=== PATIENT | male | born 1980 | race Caucasian/White ===

== ENCOUNTER 2017-04-18 15:50 | Emergency (ER) | payer OTHER ==
[2017-04-18] MEDS ORDERED: LIDOCAINE 1% INJ-PF (10 MG/ML) 30 ML SDV INJ ONE (16:02)
[2017-04-18] MEDS ORDERED: CEPHALEXIN 500 MG CAPSULE PO ONE (16:02)
[2017-04-18] MEDS ORDERED: ACETAMINOPHEN 325 MG TABLET PO ONE (16:02)
--- NOTE | 2017-04-18 16:12 | ER Document Report ---
ED Wound - General Chief Complaint: Laceration Stated Complaint: LACERATION TO RIGHT LEG Time Seen by Provider: 04/18/17 16:02 TRAVEL OUTSIDE OF THE [place] 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 Severity: Mild Context: Injury Skin Temperature: Warm Skin Color: Normal Capillary refill: < 3 seconds Sensations intact: Yes Distal pulses present: Yes - Related Data Allergies/Adverse Reactions: No Known Allergies Allergy (Verified 04/18/17 16:00) Home Medications: Current Home Medications Methadone HCl [Methadose] 40 mg PO DAILY 04/18/17 [History] Past Medical History - Social History Smoking Status: Current Every Day Smoker Family History: None Renal/ Medical History: Denies: Hx Peritoneal Dialysis Skin Medical History: Reports Hx MRSA - Immunizations Hx Diphtheria, Pertussis, Tetanus Vaccination: Yes - 2013 Review of Systems - Review of Systems Constitutional: No symptoms reported Musculoskeletal: No symptoms reported Skin: See HPI -: Yes All other systems reviewed and negative Physical Exam - Vital signs Vitals: Temp Pulse Resp BP Pulse Ox 98.0 F 70 16 138/78 H 98 04/18/17 15:54 04/18/17 15:54 04/18/17 15:54 04/18/17 15:54 04/18/17 15:54 - General General appearance: Appears well, Alert In distress: None - Cardiovascular Pulses: Normal: Posterior tibial, Dorsalis pedis Normal capillary refill: Yes - Extremities General upper extremity: Other General lower extremity: Nontender, Normal ROM, Normal strength, Normal temperature, Normal weight bearing - Neurological Neuro grossly intact: Yes Cognition: Normal Orientation: AAOx4 Laura Coma Scale Eye Opening: Spontaneous Laura Coma Scale Verbal: Oriented Laura Coma Scale Motor: Obeys Commands Laura Coma Scale Total: 15 Speech: Normal Motor strength normal: LLE, RLE Additional motor exam normals: Equal digital strategist senior manager. No: Weakness Sensory: Normal - Skin Skin irregularity: Laceration - lateral calf into subq fat without muscle involvement, minimal bleeding measuring 5cm long Course - Re-evaluation Re-evalutation: 04/18/17 19:59 Patient is a 36-year-old male who cut his leg at work. Laceration is with minimal bleeding but stopped with lidocaine with epi and pressure. Wound is irrigated with Betadine and saline. Closed with 7 vertical mattress 4-0 nylon sutures. Dry sterile dressing applied. Patient discharged home on p.o. Keflex. Patient to follow-up in 8-10 days for suture removal. - Vital Signs Vital signs: Temp Pulse Resp BP Pulse Ox 98.2 F 60 18 131/78 H 97 04/18/17 17:47 04/18/17 17:47 04/18/17 17:47 04/18/17 17:47 04/18/17 17:47 Procedures - Laceration/Wound Repair Right Leg Wound length (cm): 5 Wound's Depth, Shape: Linear Laceration pre-procedure: Sterile PPE donned, Betadine prep applied, Sterile drapes applied Anesthetic type: 1% Lidocaine w/epi Volume Anesthetic (mLs): 5 Wound explored: Clean, No foreign body removed Irrigated w/ Saline (mLs): 1,000 Wound Repaired With: Sutures Suture Size/Type: 4:0, Nylon Number of Sutures: 7 Post-procedure wound care: Sterile dressing applied Post-procedure NV exam normal: Yes Complications: No Discharge - Discharge Clinical Impression: Laceration Condition: Good Disposition: HOME, SELF-CARE Instructions: Antibiotic Ointment Protection ([facility]), Laceration Care ([facility]), Prophylactic Antibiotic ([facility]), Soap Cleansing ([facility]) Additional Instructions: Please see a health wound care specialist in 8-10 days to have your stitches removed Prescriptions: Cephalexin Monohydrate [Keflex 500 mg Capsule] 500 mg PO QID #20 capsule
[2017-04-18] MEDS ORDERED: LIDOCAINE 2%/EPINEPHRINE INJ 20 ML VIAL INJ ONE (16:46)
[2017-04-18] MEDS ORDERED: LIDOCAINE 1%/EPINEPHRINE INJ 20 ML VIAL INJ ONE (16:49)
[2017-04-18 17:50] VITALS: BP 131/78
== END 2017-04-18 17:50 | disposition home or self-care (01) ==
LOC: ER 15:50
PROC: 0HQKXZZ Repair Right Lower Leg Skin, External Approach (ICD-10-PCS; principal; 2017-04-18)
DX: S81.811A Laceration without foreign body, right lower leg, initial encounter (principal); W45.8XXA Other foreign body or object entering through skin, initial encounter; Z79.899 Other long term (current) drug therapy
CPT/HCPCS: 99282; 12002; J3490 ×2

== ENCOUNTER 2019-03-18 09:39 | Emergency (ER) | payer OTHER ==
[2019-03-18 09:45] VITALS: BP 153/77
[2019-03-18] MEDS ORDERED: TETRACAINE HCL 0.5% OPH SOLN 4 ML OS ONE (09:45)
--- NOTE | 2019-03-18 09:47 | ER Document Report ---
ED Medical Screen (RME) - General Chief Complaint: Eye Injury Stated Complaint: EYE INJURY Time Seen by Provider: 03/18/19 09:44 Mode of Arrival: Ambulatory Information source: Patient Notes: 38-year-old male presented to ED for foreign body and left eye. 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 There does appear to be a piece of metal about 10 11:00 on the left eye. He states any time he sets his eyes he can feel it rubbing against his eyelid. He is alert oriented respirations regular and unlabored speaking in full sentences walks with a even steady gait. He states he smokes a pack a day does not drink alcohol but he is on methadone. I have greeted and performed a rapid initial assessment of this patient. A comprehensive ED assessment and evaluation of the patient, analysis of test results and completion of medical decision making process will be conducted by an additional ED provider Dictation of this chart was performed using voice recognition software; therefore, there may be some unintended grammatical errors. TRAVEL OUTSIDE OF THE [place] IN LAST 30 DAYS: No - Related Data Allergies/Adverse Reactions: No Known Allergies Allergy (Verified 03/18/19 09:41) Past Medical History Renal/ Medical History: Denies: Hx Peritoneal Dialysis Skin Medical History: Reports Hx MRSA - Immunizations Hx Diphtheria, Pertussis, Tetanus Vaccination: Yes - 2013 Physical Exam - Vital signs Vitals: Temp Pulse Resp BP Pulse Ox 97.7 F 66 18 153/77 H 97 03/18/19 09:44 03/18/19 09:44 03/18/19 09:44 03/18/19 09:44 03/18/19 09:44 Course - Vital Signs Vital signs: Temp Pulse Resp BP Pulse Ox 97.7 F 66 18 153/77 H 97 03/18/19 09:44 03/18/19 09:44 03/18/19 09:44 03/18/19 09:44 03/18/19 09:44
[2019-03-18] MEDS ORDERED: KETOROLAC TROMETHAMINE 0.45% 4 DROP/0.4 ML DROPERETTE OS ONE (10:16)
[2019-03-18] MEDS ORDERED: ERYTHROMYCIN 0.5% OPH OINTMENT 3.5 GM (ER DISP) OS SCH (10:30)
--- NOTE | 2019-03-18 15:33 | ER Document Report ---
Entered by SEDRICK JORGE SCRIBE 03/18/19 1021 Acting as scribe for:AARON SENIOR DO ED Eye Complaint - General Chief Complaint: Eye Injury Stated Complaint: EYE INJURY Time Seen by Provider: 03/18/19 09:44 Primary Care Provider: PAOLO PADRON MD [ACTIVE STAFF] - Follow up in 3-5 days Mode of Arrival: Ambulatory Information source: Patient Notes: 38-year-old male who presents to emergency department today with complaints of a work-related injury that occurred just prior to arrival. 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 Patient states he tried washing the eye out with water and also attempted to use a magnet to remove it without success. Patient complains of excessive tearing to the left eye. Patient denies blurry vision or the usage of contact lenses. Last tetanus shot was within the past 10 years. TRAVEL OUTSIDE OF THE [place] IN LAST 30 DAYS: No - Related Data Allergies/Adverse Reactions: No Known Allergies Allergy (Verified 03/18/19 09:41) Past Medical History - General Information source: Patient - Social History Smoking Status: Current Every Day Smoker Cigarette use (# per day): Yes Chew tobacco use (# tins/day): No Frequency of alcohol use: None Drug Abuse: None Lives with: Family Family History: None Patient has suicidal ideation: No Patient has homicidal ideation: No Renal/ Medical History: Denies: Hx Peritoneal Dialysis Skin Medical History: Reports Hx MRSA - Immunizations Hx Diphtheria, Pertussis, Tetanus Vaccination: Yes - 2013 Review of Systems - Review of Systems Constitutional: No symptoms reported EENT: See HPI, Eye pain - left, foreign body Cardiovascular: No symptoms reported Respiratory: No symptoms reported Gastrointestinal: No symptoms reported Genitourinary: No symptoms reported Male Genitourinary: No symptoms reported Musculoskeletal: No symptoms reported Skin: No symptoms reported Hematologic/Lymphatic: No symptoms reported Neurological/Psychological: No symptoms reported -: Yes All other systems reviewed and negative Physical Exam - Vital signs Vitals: Temp Pulse Resp BP Pulse Ox 97.7 F 66 18 153/77 H 97 03/18/19 09:44 03/18/19 09:44 03/18/19 09:44 03/18/19 09:44 03/18/19 09:44 - Notes Notes: PHYSICAL EXAM GENERAL: Alert, interacts well. No acute distress. HEAD: Normocephalic, atraumatic. EYES: Pupils equal, round, and reactive to light. Extraocular movements intact. Injected conjunctiva on the left. Excessive tearing on the left. Foreign body located at the 1000 position over the iris. Corneal abrasion at the 1000 position after metal foreign body removed. Linear fluorescein uptake left to right extending to where the foreign body was removed. ENT: Oral mucosa moist, tongue midline. NECK: Full range of motion. Supple. Trachea midline. LUNGS: No respiratory distress. EXTREMITIES: Moves all 4 extremities spontaneously. NEUROLOGICAL: Alert and oriented x3. Normal speech. PSYCH: Normal affect, normal mood. SKIN: Warm, dry, normal turgor. - HEENT Visual acuity- Right eye: 20/15 Visual acuity- Left eye: 20/100 Visual acuity- Both eyes: 20/20 Corrective lenses worn: No - pt argumentative during visual accuity. provider informed of results Course - Re-evaluation Re-evalutation: 03/18/19 10:18 Eye was anesthetized using tetracaine, using the slit-lamp the foreign body was visualized and removed using the tip of an 18-gauge needle and a Q-tip, patient tolerated procedure well, afterwards slit-lamp exam was performed using fluorescein dye which revealed 2 corneal abrasions. Patient will be treated with erythromycin ointment and ketorolac drops. No rust ring was noted. Patient will be discharged to home. - Vital Signs Vital signs: Temp Pulse Resp BP Pulse Ox 97.7 F 66 18 153/77 H 97 03/18/19 09:44 03/18/19 09:44 03/18/19 09:44 03/18/19 09:44 03/18/19 09:44 Discharge - Discharge Clinical Impression: Foreign body of external eye, left Qualifiers: Encounter type: initial encounter Qualified Code(s): T15.92XA - Foreign body on external eye, part unspecified, left eye, initial encounter Condition: Stable Disposition: HOME, SELF-CARE Additional Instructions: Eye Injury You have been evaluated for an eye injury or problem. At this time no serious, vision-threatening problem could be found. We removed a piece of metal from your eye. There does not appear to be any metal left. We have prescribed erythromycin ointment for your eye. Please apply it 4 times a day for the next 5 days. Please use ibuprofen (Motrin or Advil) 600-800 mg every 8 hours as needed for pain or fever. You may also use acetaminophen (Tylenol) 1000 mg every 4-6 hours as needed for pain or fever. Please be aware that many medications contain acetaminophen, do not exceed a total of 1000 mg of acetaminophen every 6 hours. If you develop fever please return to the emergency department immediately Don't drive or operate machinery until you have the use of both your eyes. Call the doctor or return at once if you develop severe pain, decreasing vision, eye swelling, or pus drainage. Forms: Return to Work Referrals: PAOLO PADRON MD [ACTIVE STAFF] - Follow up in 3-5 days I personally performed the services described in the documentation, reviewed and edited the documentation which was dictated to the scribe in my presence, and it accurately records my words and actions.
== END 2019-03-18 10:45 | disposition home or self-care (01) ==
LOC: ER 09:39
DX: T15.02XA Foreign body in cornea, left eye, initial encounter (principal); X58.XXXA Exposure to other specified factors, initial encounter; Y93.89 Activity, other specified; Y99.0 Civilian activity done for income or pay; F17.210 Nicotine dependence, cigarettes, uncomplicated
CPT/HCPCS: 99283; 65222; J3490

== ENCOUNTER 2019-03-31 17:42 | Emergency (ER) | payer SELFPAY ==
--- NOTE | 2019-04-01 00:02 | EKG REPORT ---
SEVERITY:- BORDERLINE ECG - SINUS RHYTHM BORDERLINE PROLONGED QT INTERVAL : Confirmed by: Rafa Luna 01-Apr-2019 00:01:04
== END 2019-03-31 19:15 | disposition left against medical advice (07) ==
LOC: ER 17:42
DX: Z53.21 Procedure and treatment not carried out due to patient leaving prior to being seen by health care provider (principal)

== ENCOUNTER 2019-04-11 11:45 | Emergency (ER) | payer SELFPAY ==
--- NOTE | 2019-04-11 13:12 | ER Document Report ---
ED Medical Screen (RME) - General Chief Complaint: Chest Pain Stated Complaint: CHEST PAIN Time Seen by Provider: 04/11/19 12:54 Notes: Patient is a 38-year-old male who presents the emergency department with a chief complaint of chest pain. He states that his pain started 2 weeks ago and at that time he was lifting with his arms for his job. He states the pain is in his mid left chest and when he presses on it it hurts. Patient states that he goes to the methadone clinic and does not want any actual pain medicine. He took his methadone today. Patient is a current smoker and smokes a pack a day. He has not had this chest pain before and states that he is worried. Exam: Tenderness upon palpation to left chest. I have greeted and performed a rapid initial assessment of this patient. A comprehensive ED assessment and evaluation of the patient, analysis of test results and completion of medical decision making process will be conducted by an additional ED providers. TRAVEL OUTSIDE OF THE [place] IN LAST 30 DAYS: No - Related Data Allergies/Adverse Reactions: No Known Allergies Allergy (Verified 04/11/19 11:45) Past Medical History - Social History Frequency of alcohol use: None Drug Abuse: None Renal/ Medical History: Denies: Hx Peritoneal Dialysis Skin Medical History: Reports Hx MRSA - Immunizations Hx Diphtheria, Pertussis, Tetanus Vaccination: Yes - 2013 Physical Exam - Vital signs Vitals: Temp Pulse Resp BP Pulse Ox 98.4 F 66 16 138/72 H 97 04/11/19 11:57 04/11/19 11:57 04/11/19 11:57 04/11/19 11:57 04/11/19 11:57 Course - Vital Signs Vital signs: Temp Pulse Resp BP Pulse Ox 98.4 F 66 16 138/72 H 97 04/11/19 11:57 04/11/19 11:57 04/11/19 11:57 04/11/19 11:57 04/11/19 11:57
--- NOTE | 2019-04-11 13:35 | RADIOLOGY REPORT (SQ) ---
EXAM DESCRIPTION: CHEST SINGLE VIEW COMPLETED DATE/TIME: 04/11/2019 1:25 pm REASON FOR STUDY: chest pain COMPARISON: 10/30/2014. EXAM PARAMETERS: NUMBER OF VIEWS: One view. TECHNIQUE: Single frontal radiographic view of the chest acquired. RADIATION DOSE: NA LIMITATIONS: None. FINDINGS: LUNGS AND PLEURA: No opacities, masses or pneumothorax. No pleural effusion. MEDIASTINUM AND HILAR STRUCTURES: No masses. Contour normal. HEART AND VASCULAR STRUCTURES: Heart normal in size. Normal vasculature. BONES: No acute findings. HARDWARE: None in the chest. OTHER: No other significant finding. IMPRESSION: NO ACUTE RADIOGRAPHIC FINDING IN THE CHEST. TECHNICAL DOCUMENTATION: JOB ID: [id number] [employer]- All Rights Reserved Reading location - IP/workstation name: [email or web address]
[2019-04-11 13:39] LABS: ABSOLUTE EOSINOPHILS # (AUTO) 0.1 10^3/uL (0.0-0.6); ABSOLUTE LYMPHOCYTES (AUTO) 2.6 10^3/uL (0.5-4.7); ABSOLUTE MONOCYTES (AUTO) 0.5 10^3/uL (0.1-1.4); ABSOLUTE NEUT (AUTO) 3.4 10^3/uL (1.7-8.2); BASOPHILS % (AUTO) 0.5 % (0-2); EOSINOPHILS % (AUTO) 1.7 % (0-6); HEMATOCRIT 43.4 % (37.9-51.0); LYMPHOCYTES % (AUTO) 39.2 % (13-45); MEAN CORPUSCULAR HEMOGLOBIN 33.1 pg (27.0-33.4); MEAN CORPUSCULAR HGB CONC 34.6 g/dL (32.0-36.0); MEAN CORPUSCULAR VOLUME 96 fl (80-97); MONOCYTES % (AUTO) 7.2 % (3-13); PLATELET COUNT 181 10^3/uL (150-450); RED BLOOD COUNT 4.54 10^6/uL (4.35-5.55); RED CELL DISTRIBUTION WIDTH 12.6 % (11.5-14.0); SEGMENTED NEUTROPHILS % (AUTO) 51.4 % (42-78); TOTAL CELLS COUNTED % (AUTO) 100 %; WHITE BLOOD COUNT 6.7 10^3/uL (4.0-10.5)
[2019-04-11 13:56] LABS: ALBUMIN 4.6 g/dL (3.5-5.0); ALKALINE PHOSPHATASE 60 U/L (38-126); ANION GAP 9 (5-19); ASPARTATE AMINO TRANSFERASE 29 U/L (17-59); BILIRUBIN,DIRECT 0.2 mg/dL (0.0-0.4); BILIRUBIN,TOTAL 0.4 mg/dL (0.2-1.3); BLOOD UREA NITROGEN 12 mg/dL (7-20); CALCIUM 9.5 mg/dL (8.4-10.2); CARBON DIOXIDE 31 mmol/L (22-30); CHLORIDE 101 mmol/L (98-107); CREATINE KINASE 101 U/L (55-170); GLUCOSE 94 mg/dL (75-110); POTASSIUM 4.5 mmol/L (3.6-5.0); TOTAL PROTEIN 7.9 g/dL (6.3-8.2)
[2019-04-11 14:08] LABS: CREATINE KINASE MB 0.75 ng/mL (<4.55)
[2019-04-11 14:09] LABS: TROPONIN I < 0.012 ng/mL
--- NOTE | 2019-04-11 15:43 | ER Document Report ---
ED General - General Chief Complaint: Chest Pain Stated Complaint: CHEST PAIN Time Seen by Provider: 04/11/19 12:54 Mode of Arrival: Ambulatory Information source: Patient TRAVEL OUTSIDE OF THE [place] IN LAST 30 DAYS: No - HPI Patient complains to provider of: chest pain Onset: Other - Pt states he lifted a heavy object approximately 2 weeks ago and he has been having intermittent L sided CP since. He denies diaphoresis, N,V, SOB - Related Data Allergies/Adverse Reactions: No Known Allergies Allergy (Verified 04/11/19 11:45) Past Medical History - Social History Smoking Status: Current Every Day Smoker Frequency of alcohol use: None Drug Abuse: None Family History: None Patient has suicidal ideation: No Patient has homicidal ideation: No Renal/ Medical History: Denies: Hx Peritoneal Dialysis Skin Medical History: Reports Hx MRSA - Immunizations Hx Diphtheria, Pertussis, Tetanus Vaccination: Yes - 2013 Review of Systems - Review of Systems Constitutional: No symptoms reported EENT: No symptoms reported Cardiovascular: See HPI, Chest pain Respiratory: No symptoms reported Gastrointestinal: No symptoms reported Musculoskeletal: No symptoms reported Neurological/Psychological: No symptoms reported -: Yes All other systems reviewed and negative Physical Exam - Vital signs Vitals: Temp Pulse Resp BP Pulse Ox 98.4 F 66 16 138/72 H 97 04/11/19 11:57 04/11/19 11:57 04/11/19 11:57 04/11/19 11:57 04/11/19 11:57 - General General appearance: Appears well In distress: None - HEENT Pharynx: Normal Neck: Normal - Respiratory Respiratory status: No respiratory distress Chest status: Tender - there is min TTP of the L chest diffusely Breath sounds: Normal - Cardiovascular Rhythm: Regular Heart sounds: Normal auscultation Murmur: No - Abdominal Inspection: Normal Bowel sounds: Normal Tenderness: Nontender Course - Re-evaluation Re-evalutation: 04/11/19 15:41 Pt's re-evaluation unchanged -- expressed desire to go home - Vital Signs Vital signs: Temp Pulse Resp BP Pulse Ox 98.4 F 66 16 138/72 H 97 04/11/19 11:57 04/11/19 11:57 04/11/19 11:57 04/11/19 11:57 04/11/19 11:57 - Laboratory Result Diagrams: 04/11/19 13:31 04/11/19 13:31 Laboratory results interpreted by me: 04/11/19 13:31 Carbon Dioxide 31 H - Diagnostic Test Radiology reviewed: Reports reviewed - neg cxr - EKG Interpretation by Me EKG shows normal: Sinus rhythm Rate: Normal Rhythm: NSR - nsr without acute change Discharge - Discharge Clinical Impression: Chest pain Qualifiers: Chest pain type: other chest pain Qualified Code(s): R07.89 - Other chest pain Condition: Stable Disposition: HOME, SELF-CARE Instructions: Chest Wall Pain ([facility]), Chest Pain of Unclear Cause ([facility]) Additional Instructions: rest, take meds as prescribed, return if worse Prescriptions: Etodolac [Lodine] 400 mg PO BID #14 tablet Referrals: BENJAMIN MITCHELL MD [COMMUNITY BASED STAFF] - Follow up as needed
[2019-04-11 18:58] VITALS: BP 133/89
--- NOTE | 2019-04-11 23:12 | EKG REPORT ---
SEVERITY:- NORMAL ECG - SINUS RHYTHM : Confirmed by: Chapis Ortiz MD 11-Apr-2019 23:11:48
== END 2019-04-11 16:10 | disposition home or self-care (01) ==
LOC: ER 11:45
DX: R07.9 Chest pain, unspecified (principal); X50.0XXA Overexertion from strenuous movement or load, initial encounter; F17.200 Nicotine dependence, unspecified, uncomplicated
CPT/HCPCS: 36415; 71045; 80053; 82550; 82553; 84484; 85025; 93005; 93010; 99285

== ENCOUNTER 2019-05-21 11:34 | Emergency (ER) | payer SELFPAY ==
--- NOTE | 2019-05-21 12:48 | ER Document Report ---
ED Medical Screen (RME) - General Chief Complaint: Chest Pain Stated Complaint: CHEST PAIN Time Seen by Provider: 05/21/19 12:46 Mode of Arrival: Ambulatory Information source: Patient Notes: 38-year-old male presented to ED for complaint of right sided chest pain around to the back. He states he does use a vapor cigarette. He states he was in here about a month ago for left-sided chest pain but did not tell him that he was using the THC vape. And now he is concerned about the pain in his right calf. He states that he woke up this morning with a cough and a wheeze so he came to the emergency room to get checked out. He states he is also very short of breath. He states he smokes a pack of cigarettes a day he states he goes to the methadone clinic.. I have greeted and performed a rapid initial assessment of this patient. A comprehensive ED assessment and evaluation of the patient, analysis of test results and completion of medical decision making process will be conducted by an additional ED providers. TRAVEL OUTSIDE OF THE [place] IN LAST 30 DAYS: No - Related Data Allergies/Adverse Reactions: No Known Allergies Allergy (Verified 05/21/19 11:35) Past Medical History Renal/ Medical History: Denies: Hx Peritoneal Dialysis Skin Medical History: Reports Hx MRSA - Immunizations Hx Diphtheria, Pertussis, Tetanus Vaccination: Yes - 2013 Physical Exam - Vital signs Vitals: Temp Pulse Resp BP Pulse Ox 97.6 F 64 16 130/68 H 97 05/21/19 11:51 05/21/19 11:51 05/21/19 11:51 05/21/19 11:51 05/21/19 11:51 Course - Vital Signs Vital signs: Temp Pulse Resp BP Pulse Ox 97.6 F 64 16 130/68 H 97 05/21/19 11:51 05/21/19 11:51 05/21/19 11:51 05/21/19 11:51 05/21/19 11:51
[2019-05-21 13:39] LABS: ABSOLUTE BASOPHILS # (AUTO) 0.1 10^3/uL (0.0-0.2); ABSOLUTE LYMPHOCYTES (AUTO) 1.7 10^3/uL (0.5-4.7); ABSOLUTE MONOCYTES (AUTO) 0.6 10^3/uL (0.1-1.4); BASOPHILS % (AUTO) 0.9 % (0-2); EOSINOPHILS % (AUTO) 0.4 % (0-6); HEMATOCRIT 44.7 % (37.9-51.0); HEMOGLOBIN 15.6 g/dL (13.5-17.0); LYMPHOCYTES % (AUTO) 20.4 % (13-45); MEAN CORPUSCULAR HEMOGLOBIN 33.3 pg (27.0-33.4); MEAN CORPUSCULAR HGB CONC 34.8 g/dL (32.0-36.0); MEAN CORPUSCULAR VOLUME 96 fl (80-97); MONOCYTES % (AUTO) 7.2 % (3-13); PLATELET COUNT 179 10^3/uL (150-450); RED BLOOD COUNT 4.67 10^6/uL (4.35-5.55); RED CELL DISTRIBUTION WIDTH 12.8 % (11.5-14.0); SEGMENTED NEUTROPHILS % (AUTO) 71.1 % (42-78); TOTAL CELLS COUNTED % (AUTO) 100 %; WHITE BLOOD COUNT 8.5 10^3/uL (4.0-10.5)
[2019-05-21 14:06] LABS: TROPONIN I < 0.012 ng/mL
[2019-05-21 14:14] LABS: ALBUMIN 4.7 g/dL (3.5-5.0); ALKALINE PHOSPHATASE 66 U/L (38-126); ANION GAP 11 (5-19); ASPARTATE AMINO TRANSFERASE 30 U/L (17-59); BILIRUBIN,DIRECT 0.1 mg/dL (0.0-0.4); BILIRUBIN,TOTAL 0.6 mg/dL (0.2-1.3); BLOOD UREA NITROGEN 14 mg/dL (7-20); CALCIUM 9.6 mg/dL (8.4-10.2); CARBON DIOXIDE 26 mmol/L (22-30); CHLORIDE 103 mmol/L (98-107); CREATINE KINASE 130 U/L (55-170); GLUCOSE 96 mg/dL (75-110); POTASSIUM 3.9 mmol/L (3.6-5.0)
--- NOTE | 2019-05-21 14:48 | RADIOLOGY REPORT (SQ) ---
EXAM DESCRIPTION: CHEST 2 VIEWS COMPLETED DATE/TIME: 05/21/2019 2:29 pm REASON FOR STUDY: sharp chest pain mostly on right COMPARISON: 04/11/2019 EXAM PARAMETERS: NUMBER OF VIEWS: two views TECHNIQUE: Digital Frontal and Lateral radiographic views of the chest acquired. RADIATION DOSE: NA LIMITATIONS: none FINDINGS: LUNGS AND PLEURA: No opacities, masses or pneumothorax. No pleural effusion. MEDIASTINUM AND HILAR STRUCTURES: No masses or contour abnormalities. HEART AND VASCULAR STRUCTURES: Heart normal size. No evidence for failure. BONES: No acute findings. HARDWARE: None in the chest. OTHER: No other significant finding. IMPRESSION: NO ACUTE RADIOGRAPHIC FINDING IN THE CHEST. TECHNICAL DOCUMENTATION: JOB ID: [id number] [employer]- All Rights Reserved Reading location - IP/workstation name: [email or web address]
[2019-05-21 18:16] LABS: APPEARANCE,URINE TURBID; BILIRUBIN,URINE NEGATIVE (NEGATIVE); GLUCOSE, URINE NEGATIVE (NEGATIVE); KETONES,URINE NEGATIVE (NEGATIVE); LEUKOCYTE ESTERASE,URINE TRACE (NEGATIVE); NITRITE,URINE NEGATIVE (NEGATIVE); PROTEIN,URINE 30 mg/dL (NEGATIVE); URINE SPECIFIC GRAVITY 1.031
[2019-05-21 18:17] LABS: COLOR,URINE DARK YELLOW
--- NOTE | 2019-05-21 19:20 | ER Document Report ---
ED General - General Chief Complaint: Chest Pain Stated Complaint: CHEST PAIN Time Seen by Provider: 05/21/19 12:46 Mode of Arrival: Ambulatory TRAVEL OUTSIDE OF THE [place] IN LAST 30 DAYS: No - HPI Notes: Patient is a 38-year-old male who presents emergency department for evaluation of right-sided chest pain. He was actually seen here 6 weeks ago for pain in his left side of his chest. He states he actually "feel it move" over the right side of his chest. Is worsened with certain positions, sometimes with deep breaths. Denies any shortness of breath. He has no family history of PE or DVT. No personal history of PE or DVT. No prolonged immobilization, no recent surgeries, no history of cancer. He denies any associated shortness of breath, nausea, diaphoresis, near syncope. - Related Data Allergies/Adverse Reactions: No Known Allergies Allergy (Verified 05/21/19 11:35) Past Medical History - General Information source: Patient - Vaping, quitting - Social History Smoking Status: Current Every Day Smoker Drug Abuse: None, Marijuana Family History: None Patient has suicidal ideation: No Patient has homicidal ideation: No Renal/ Medical History: Denies: Hx Peritoneal Dialysis Skin Medical History: Reports Hx MRSA - Immunizations Hx Diphtheria, Pertussis, Tetanus Vaccination: Yes - 2013 Review of Systems - Review of Systems Constitutional: No symptoms reported EENT: No symptoms reported Cardiovascular: See HPI Respiratory: No symptoms reported Gastrointestinal: No symptoms reported Genitourinary: No symptoms reported Musculoskeletal: See HPI Skin: No symptoms reported Neurological/Psychological: No symptoms reported Physical Exam - Vital signs Vitals: Temp Pulse Resp BP Pulse Ox 97.6 F 64 16 130/68 H 97 05/21/19 11:51 05/21/19 11:51 05/21/19 11:51 05/21/19 11:51 05/21/19 11:51 - Notes Notes: Vital signs reviewed, please refer to chart. Head is normocephalic, atraumatic. Pupils equal round, reactive to light. Neck is supple without meningismus. Heart is regular rate and rhythm. Lungs are clear to auscultation bilaterally. No abnormalities to examination of the chest wall. Tender to palpation over the right dorsalis muscle, from the midclavicular line and towards the axilla, from the 3rd-6th ribs. Abdomen is soft, nontender, normoactive bowel sounds throughout. Extremities without cyanosis, clubbing. Posterior calves are nontender. Peripheral pulses are equal. Skin is warm and dry. Patient is awake, alert, neurological exam is nonfocal. Course - Re-evaluation Re-evalutation: 05/21/19 19:16 Patient presents emergency department for evaluation. His chest pain has been present long enough to effectively rule out ACS given negative laboratory investigations. Certainly his pain would be atypical. He has no risk factors for DVT or PE. He has a heart rate in the 70s, is not tachycardic. His pain is reproducible, I do suspect that this is musculoskeletal in nature. I will then send him a prescription strength anti-inflammatories. He is to follow-up with primary care, return to the ED with worsening or new concerning symptoms of any sort. - Vital Signs Vital signs: Temp Pulse Resp BP Pulse Ox 97.6 F 64 16 130/68 H 97 05/21/19 11:51 05/21/19 11:51 05/21/19 11:51 05/21/19 11:51 05/21/19 11:51 - Laboratory Result Diagrams: 05/21/19 13:20 05/21/19 13:20 Laboratory results interpreted by me: 05/21/19 15:00 Urine Protein 30 H Urine Urobilinogen 2.0 H Ur Leukocyte Esterase TRACE H Urine Ascorbic Acid 40 H - EKG Interpretation by Me Additional EKG results interpreted by me: 05/21/19 19:17 Sinus mechanism with rate of 76 bpm. Normal axis and intervals, no acute ST changes concerning for ischemia or infarction. Discharge - Discharge Clinical Impression: Chest wall pain Condition: Stable Disposition: HOME, SELF-CARE Instructions: Chest Wall Pain ([facility]) Additional Instructions: Take medications as prescribed. Please take with food. Follow-up with primary care in 1 to 2 weeks. If you develop worsening or new concerning symptoms of any sort, return immediately to the emergency department for reevaluation. Prescriptions: Naproxen [Naprosyn 375 Mg Tablet] 375 mg PO BID #20 tablet
[2019-05-21 19:30] VITALS: BP 141/76
[2019-05-21 19:40] LABS: URINE AMPHETAMINES SCREEN NEGATIVE; URINE BARBITURATES SCREEN NEGATIVE; URINE BENZODIAZEPINES SCREEN NEGATIVE; URINE COCAINE SCREEN NEGATIVE; URINE MARIJUANA (THC) SCREEN UNCONFIRMED POSITIVE; URINE METHADONE SCREEN UNCONFIRMED POSITIVE; URINE PHENCYCLIDINE SCREEN NEGATIVE
--- NOTE | 2019-05-21 23:08 | EKG REPORT ---
SEVERITY:- NORMAL ECG - SINUS RHYTHM : Confirmed by: Chapis Ortiz MD 21-May-2019 23:07:20
== END 2019-05-21 19:28 | disposition home or self-care (01) ==
LOC: ER 11:34
DX: R07.89 Other chest pain (principal); F17.290 Nicotine dependence, other tobacco product, uncomplicated
CPT/HCPCS: 36415; 71046; 80053; 80307; 81001; 82550; 82553; 83690; 84484; 85025; 93005; 93010; 99285

== ENCOUNTER → 2019-06-27 | Outpatient (CLI) | payer OTHER ==
--- NOTE | 2019-06-27 15:11 | RADIOLOGY REPORT (SQ) ---
EXAM DESCRIPTION: CT CHEST WITHOUT COMPLETED DATE/TIME: 06/27/2019 2:50 pm REASON FOR STUDY: (R07.9)CHEST PAIN, UNSPECIFIED R07.9 CHEST PAIN, UNSPECIFIED COMPARISON: None. TECHNIQUE: CT scan performed of the chest without intravenous contrast. Images reviewed with lung, soft tissue and bone windows. Reconstructed coronal and sagittal MPR images reviewed. All images st ored on PACS. All CT scanners at this facility use dose modulation, iterative reconstruction, and/or weight based d osing when appropriate to reduce radiation dose to as low as reasonably achievable (ALARA). [facility]: Dose Right [facility]: CareDose [facility]: Dose Right [facility]: Teradose 4D [facility]: Smart Ohmx RADIATION DOSE: CT Rad equipment meets quality standard of care and radiation dose reduction techniq ues were employed. CTDIvol: 3.4 - 4.7 mGy. DLP: 257 mGy-cm. mGy. LIMITATIONS: No technical limitations. FINDINGS: LUNGS AND PLEURA: No masses, infiltrates, or pneumothorax. No pleural effusions or pleura l calcifications. HILAR AND MEDIASTINAL STRUCTURES: No identified masses or abnormal nodes. No obvious aneurysm. HEART AND VASCULAR STRUCTURES: No aneurysm. No pericardial effusion. UPPER ABDOMEN: No significant findings. Limited exam. THYROID AND OTHER SOFT TISSUES: No masses. No adenopathy. BONES: No significant finding. HARDWARE: None in the chest. OTHER: No other significant findings. IMPRESSION: NO SIGNIFICANT FINDING ON NON-CONTRASTED CHEST CT. TECHNICAL DOCUMENTATION: JOB ID: [id number] Quality ID # [id number]: Final reports with documentation of one or more dose reduction techniques (e.g., Au tomated exposure control, adjustment of the mA and/or kV according to patient size, use of iterative reconstruction technique) 2010 [employer]- All Rights Reserved Reading location - IP/workstation name: [email or web address]
== END ==
LOC: RAD 14:19
PROVIDERS: ATTEND Family Medicine
DX: R07.9 Chest pain, unspecified (principal)
CPT/HCPCS: 71250

== ENCOUNTER 2020-02-16 15:47 | Emergency (ER) | payer SELFPAY ==
[2020-02-16 15:55] VITALS: BP 122/76
--- NOTE | 2020-02-16 17:03 | ER Document Report ---
HPI - HPI Time Seen by Provider: 02/16/20 16:58 Notes: CHIEF COMPLAINT: Dental pain for 1 week HPI: 39-year-old male with history of chronically poor dentition presenting for dental pain for 1 week right upper molars and canine. No facial swelling or fever. Patient requesting antibiotics. Patient states he has been taking anti- inflammatories for the discomfort ROS: See HPI - all other systems were reviewed and are otherwise negative Constitutional: no fever Eyes: no drainage, no blurred vision ENT: no runny nose, no sore throat, positive dental pain Cardiovascular: no chest pain Resp: no SOB, no cough GI: no abdominal pain Integumentary: no rash Allergy: no hives Need no MEDICATIONS: I agree with the patient medications as charted by the RN. ALLERGIES: I agree with the allergies as charted by the RN. PAST MEDICAL HISTORY/PAST SURGICAL HISTORY: Reviewed and agree as charted by RN. SOCIAL HISTORY: Reviewed and agree as charted by RN. FAMILY HISTORY: No significant familial comorbid conditions directly related to patient complaint EXAM: Reviewed vital signs as charted by RN. CONSTITUTIONAL: Alert and oriented and responds appropriately to questions. Well-appearing; well-nourished HEAD: Normocephalic; atraumatic EYES: PERRL; Conjunctivae clear, sclerae non-icteric ENT: normal nose; no rhinorrhea; moist mucous membranes; pharynx without lesions noted, no uvula edema or deviation, no tonsillar hypertrophy, phonation normal. Chronically poor dentition with multiple areas of dental caries. Right upper canine with significant dental caries with some edema of the gums. Right upper second molar with fracture of the posterior half of the tooth with some edema of the gums. No facial swelling. No sublingual swelling. No trismus. Phonation is normal. NECK: Supple without meningismus; non-tender; no cervical lymphadenopathy, no masses CARD: Capillary refill less than 3 seconds; symmetric distal pulses RESP: Normal chest excursion without splinting or tachypnea ABD/GI: non-distended BACK: The back appears normal EXT: Normal ROM in all joints;no cyanosis, no effusions, no edema SKIN: Normal color for age and race; warm; dry; good turgor NEURO: Moves all extremities equally; Motor and sensory function intact PSYCH: The patient's mood and manner are appropriate. Grooming and personal hygiene are appropriate. MDM: 39-year-old male with likely dental infection from dental caries patient requesting antibiotics. Does not wish a prescription for pain medication. Will discharge home to follow-up with his dental clinic - REPRODUCTIVE Reproductive: DENIES: : Past Medical History - Social History Smoking Status: Current Every Day Smoker Family History: None Renal/ Medical History: Denies: Hx Peritoneal Dialysis Skin Medical History: Reports Hx MRSA - Immunizations Hx Diphtheria, Pertussis, Tetanus Vaccination: Yes - 2013 [employer] Provider Document - INFECTION CONTROL TRAVEL OUTSIDE OF THE [place] IN LAST 30 DAYS: No Course - Vital Signs Vital signs: Temp Pulse Resp BP Pulse Ox 98.0 F 55 L 16 122/76 96 02/16/20 15:51 02/16/20 15:51 02/16/20 15:51 02/16/20 15:51 02/16/20 15:51 Discharge - Discharge Clinical Impression: Pain due to dental caries Condition: Stable Disposition: HOME, SELF-CARE Additional Instructions: 1. Take the medications as prescribed, if you were written antibiotics make sure that you finish them. 2. You need to follow up with a dentist for definitive evaluation and care of your dental problems 3. return to the ED for any facial swelling, fever > 101, difficulty swallowing or opening the mouth. 4. You may attempt to follow up with the [facility] for further care as well as through the dental list provided. 5. you may want to consider a dental discount plan such as [email or web address] to help with costs of dental care as you do not have dental insurance Prescriptions: Penicillin V Potassium [Penicillin Vk 500 mg Tablet] 500 mg PO BID #20 tablet Diclofenac Sodium [Voltaren 50 Mg Tablet.Dr] 50 mg PO BID #20 tablet. Referrals: GIULIANA HENDRIX MD [Primary Care Provider] - Follow up as needed
== END 2020-02-16 17:05 | disposition home or self-care (01) ==
LOC: ER 15:47
DX: K02.9 Dental caries, unspecified (principal); K08.89 Other specified disorders of teeth and supporting structures; F17.200 Nicotine dependence, unspecified, uncomplicated
CPT/HCPCS: 99282